=== PATIENT | female | born 1975 | race Hispanic/Latino ===

== ENCOUNTER 2021-11-02 11:41 | Emergency (ER) | payer BC, SELFPAY ==
--- NOTE | 2021-11-02 11:48 | ED.SKABFB ---
HPI - Skin/Abscess/Foreign Bdy General Chief complaint: Skin/Abscess/Foreign Body Stated complaint: body rash Time Seen by Provider: 11/02/21 12:40 Source: patient and RN notes reviewed Mode of arrival: ambulatory Limitations: no limitations History of Present Illness HPI narrative: 46-year-old female presents with concern for reports swollen lips, rash. She reports she started having symptoms yesterday after flying on an airplane. Reports her lips were swollen and her upper eyelids were swollen. Reports generalized itching. She denies trouble swallowing, swollen tongue, trouble breathing, diarrhea, vomiting, fever. She denies any similar reaction to anything in the past. She denies any new body care products, with household products. Reports she started taking bupropion 2 weeks ago, otherwise has not taken any new medications. MD complaint: rash Related Data Home Medications Medication Instructions Recorded Confirmed bupropion HCl 150 mg 24 hr tablet, mg PO 11/02/21 extended release Allergies Allergy/AdvReac Type Severity Reaction Status Date / Time meperidine [From Demerol] Allergy Seizure Verified 11/02/21 12:14 Review of Systems Review of Systems: CONSTITUTIONAL: Denies malaise, chills, sweats, or fever. EYES: Denies redness, or discharge. Reports swollen upper eyelids ENT: Denies rhinorrhea, congestion, swollen tongue. Reports swollen lips CARDIOVASCULAR: Denies chest pain, palpitations, or edema. RESPIRATORY: Denies cough or dyspnea. GASTROINTESTINAL: Denies abdominal pain, nausea, vomiting SKIN: Reports generalized itchiness MUSCULOSKELETAL: Denies joint pain or myalgia. NEUROLOGIC: Denies headache. All systems reviewed & are unremarkable except as noted in HPI and below PMFSH Comments At time of signature, agree with nursing past medical, surgical, social and family history. There is no relevant family history pertinent to the presenting complaint Exam Narrative: GENERAL: Well-appearing, well-nourished, and in no acute distress. HEAD: Normocephalic, atraumatic. EYES: PERRLA, conjunctivae clear, and EOMI. mild soft edema to bilateral upper eyelids, no periorbital cellulitis noted ENT: Mucous membranes moist. Oropharynx without edema, erythema or lesions. Swollen lips noted, no swollen tongue NECK: Supple. No lymphadenopathy CHEST: Clear to auscultation. No respiratory distress. HEART: Regular rate and rhythm. SKIN: Warm, dry. Small amount of scattered erythematous papules NEURO: Alert and oriented x3. PSYCH: Normal mood and affect Course Course Emergency Course: Patient is aware of diagnosis, understands and agrees to treatment plan. Anticipatory guidance given. Patient agrees to follow-up as directed and is aware of reasons to seek care at the emergency department. Portions of this record may have been created with voice recognition software Level of Care: Express Care Visit Consultations Consultation #1: Patient reports a slight improvement in her symptoms Date: 11/02/21 Time: 13:29 Vital Signs Vital signs: Vital Signs Temperature 98.2 F 11/02/21 12:15 Pulse Rate 75 11/02/21 12:15 Respiratory Rate 14 11/02/21 12:15 Blood Pressure 123/85 11/02/21 12:15 Pulse Oximetry 100 11/02/21 12:15 Oxygen Delivery Room Air 11/02/21 12:15 Temperature 98.2 F 11/02/21 12:16 Pulse Rate 75 11/02/21 12:16 Respiratory Rate 14 11/02/21 12:16 Blood Pressure 123/85 11/02/21 12:16 Pulse Oximetry 100 11/02/21 12:16 Oxygen Delivery Room Air 11/02/21 12:16 Reviewed. MDM - Skin/Abscess/Foreign Bdy MDM Narrative Medical decision making narrative: No soft palate or uvula edema, no tongue or lip edema or other mucosal involvement, no respiratory compromise, no stridor, no wheezing, no wheezing, no history of syncope, no hypotension, no nausea, vomiting, or diarrhea. Differential Diagnosis Differential diagnosis: Likely urticaria, allergic reaction to drug an
[2021-11-02 12:15] VITALS: BP 123/85; PULSE 75; RESP 14; TEMP 36.8; O2SAT 100
[2021-11-02 12:16] VITALS: BP 123/85; PULSE 75; RESP 14; TEMP 36.8; O2SAT 100
[2021-11-02] MEDS: methylPREDNISolone SOD SUCC 125 MG VIAL IM (12:56)
== END 2021-11-02 13:23 | disposition home or self-care (01) ==
PROVIDERS: Emergency Provider Nurse Practitioner
DX: L50.9 Urticaria, unspecified (principal); F41.9 Anxiety disorder, unspecified; F32.A Depression, unspecified; G47.30 Sleep apnea, unspecified
CPT/HCPCS: 96372; 99213; G0463; J2930

== ENCOUNTER 2021-11-03 02:44 | Emergency (ER) | payer BC, SELFPAY ==
[2021-11-03 02:46] VITALS: BP 129/79; PULSE 129; RESP 18; TEMP 36.4; O2SAT 98
[2021-11-03] MEDS: FAMOTIDINE 20 MG/2 ML VIAL IV PUSH (03:16)
[2021-11-03] MEDS: methylPREDNISolone SOD SUCC 125 MG VIAL IV PUSH (03:17)
[2021-11-03] MEDS: diphenhydrAMINE HCl INJ 50 MG/ML VIAL 25 MG IV PUSH (03:19)
[2021-11-03 03:22] VITALS: BP 117/65; PULSE 110; RESP 20; O2SAT 98
[2021-11-03 04:01] VITALS: BP 102/61; PULSE 99; RESP 17; O2SAT 99
[2021-11-03 04:37] VITALS: BP 102/60; PULSE 100; RESP 21; O2SAT 95
--- NOTE | 2021-11-03 04:43 | ED.ALLEREA ---
HPI - Allergic Reaction General Chief complaint: Skin/Abscess/Foreign Body Stated complaint: rash Time Seen by Provider: 11/03/21 02:58 History of Present Illness HPI narrative: 46-year-old female presents emergency room secondary to a diffuse urticarial rash. She states she had her first episode yesterday went to an urgent care. They treated her and she got better. Last night she took Wellbutrin again and had another reaction which is even worse. She just began the Wellbutrin a couple weeks ago secondary to some mood issues she been dealing with. Denies any shortness of breath. Had never had anything like this before. She was given medication at the urgent care yesterday when is happened to take it much better. She did get a prescription for prednisone and is supposed to start taking that today. Related Data Allergies Allergy/AdvReac Type Severity Reaction Status Date / Time bupropion [From Wellbutrin] Allergy Hives Verified 11/03/21 03:16 meperidine [From Demerol] Allergy Unresponsiv Verified 11/03/21 03:15 e Review of Systems Review of Systems: CONSTITUTIONAL: Denies fever, chills, or sweats. EYES: Denies visual changes, redness, or discharge. ENT: Denies rhinorrhea, congestion, sore throat, or otalgia. Redness to the face but no swelling to the tongue CARDIOVASCULAR: Denies chest pain, palpitations, or edema. RESPIRATORY: Denies cough or dyspnea. GASTROINTESTINAL: Denies abdominal pain, nausea, vomiting, or diarrhea. GENITOURINARY: Denies dysuria or hematuria. SKIN: Diffuse urticarial rash MUSCULOSKELETAL: Denies back pain, joint pain, or myalgia. NEUROLOGIC: Denies headache, numbness, or weakness. PSYCHIATRIC: Denies anxiety or depression. FORMERLY [facility], [facility]–1983 Past Medical History Medical History (Updated 11/03/21 @ 04:45 by Michael Donaldson DO) Depression Social History Social History (Updated 11/03/21 @ 04:45 by Michael Donaldson DO) Smoking status: Never smoker Living arrangements: with family Exam Narrative: APPEARANCE: Well appearing, no pain or distress, well-nourished. Head Normocephalic and atraumatic. EYES: PERRLA/EOMI, conjunctivae clear. NOSE: Normal with no drainage EARS:TMS clear with Fink, with good light reflex. THROAT: Pharynx clear, no exudate. NECK: Supple. No adenopathy, no masses. RESPIRATORY: Airway patent, respirations nonlabored. Clear to auscultation bilaterally, no rales, rhonchi, wheezing. CARDIOVASCULAR: Regular rate and rhythm without murmurs, rubs, or gallops. ABDOMINAL: Soft, nontender, nondistended, no hepatosplenomegaly Musculoskeletal: Moves all extremities. Strength/ROM intact, No edema, No calf tenderness. NEURO: Alert. Cranial nerves II through XII intact. Normal gait. Good coordination. Nonfocal examination. SKIN:: Diffuse urticarial rash PSYCHIATRIC: Normal affect/mood, normal interaction Course Vital Signs Vital signs: Vital Signs Temperature 97.5 F L 11/03/21 02:46 Pulse Rate 129 H 11/03/21 02:46 Respiratory Rate 18 11/03/21 02:46 Blood Pressure 129/79 11/03/21 02:46 Pulse Oximetry 98 11/03/21 02:46 Temperature 97.5 F L 11/03/21 02:46 Pulse Rate 100 11/03/21 04:37 Respiratory Rate 21 H 11/03/21 04:37 Blood Pressure 102/60 11/03/21 04:37 Pulse Oximetry 95 11/03/21 04:37 MDM - Allergic Reaction MDM Narrative Medical decision making narrative: Patient treated with Benadryl, Pepcid, and Solu-Medrol. Reevaluated approximately hour later and doing much better and essentially the rash is completely gone at this time. Advised the patient not to take the Wellbutrin. Also advised her to take the prednisone she was prescribed yesterday supplement that was Zyrtec 10 mg a day. Discharge Plan Discharge Clinical Impression: Urticaria, Allergic reaction to drug Patient Disposition: Home, Self-Care Condition: Improved Instructions: Urticaria (ED) Additional Instructions: Take the prednisone that you were prescribed yeste
== END 2021-11-03 04:53 | disposition home or self-care (01) ==
PROVIDERS: Emergency Provider Emergency Medicine
DX: L50.0 Allergic urticaria (principal); T43.295A Adverse effect of other antidepressants, initial encounter; F32.A Depression, unspecified
CPT/HCPCS: 96374; 96375; 99284; J1200; J2930

== ENCOUNTER 2021-11-04 00:06 | Emergency (ER) | payer BC, SELFPAY ==
[2021-11-04 00:14] VITALS: BP 132/78; PULSE 110; RESP 18; TEMP 36.5; O2SAT 100
--- NOTE | 2021-11-04 00:18 | ED.ALLEREA ---
HPI - Allergic Reaction General Chief complaint: Allergic Reaction <BRENDA Murray Last Filed: 11/04/21 01:38> Stated complaint: hives <BRENDA Murray Last Filed: 11/04/21 01:38> Time Seen by Provider: 11/04/21 00:10 <BRENDA Murray Last Filed: 11/04/21 01:38> Source: patient <BRENDA Murray Last Filed: 11/04/21 01:38> Mode of arrival: ambulatory <BRENDA Murray Last Filed: 11/04/21 01:38> Limitations: no limitations <BRENDA Murray Last Filed: 11/04/21 01:38> History of Present Illness HPI narrative: This is a 46-year-old female that presents to the emergency department for hives present tonight. Reports she is evaluated in the ER last night for similar occurrence. She started her prednisone today. She noted hives again tonight. She took some Benadryl around 10:30 PM. She also took a Zyrtec today. She presented for reevaluation as her hives were present again tonight. Reports it possibly being a reaction to Wellbutrin. No other known new medications, soaps, lotions, detergents. Denies dyspnea or dysphagia. <BRENDA Murray Last Filed: 11/04/21 01:38> Related Data Allergies/adverse reactions: Allergies Allergy/AdvReac Type Severity Reaction Status Date / Time bupropion [From Wellbutrin] Allergy Hives Verified 11/03/21 03:16 meperidine [From Demerol] Allergy Unresponsiv Verified 11/03/21 03:15 e <BRENDA Murray Last Filed: 11/04/21 01:38> Review of Systems Review of Systems: CONSTITUTIONAL: Denies fever RESPIRATORY: Denies dyspnea. SKIN: Reports rash and itching. <BRENDA Murray Last Filed: 11/04/21 01:38> All systems reviewed & are unremarkable except as noted in HPI and below <BRENDA Murray Last Filed: 11/04/21 01:38> [facility] Past Medical History Medical History: Medical History (Updated 11/04/21 @ 01:38 by Karlene Mdaera PA-C) Depression <Karlene Madera PA-C - Last Filed: 11/04/21 01:38> Social History Social History: Social History (Updated 11/03/21 @ 04:45 by Michael Donaldson DO) Smoking status: Never smoker <Karlene Madera PA-C - Last Filed: 11/04/21 01:38> Exam Narrative: GENERAL: Well-appearing, well-nourished, and in no acute distress. HEAD: Normocephalic, atraumatic. EYES: EOMI. ENT: Mucous membranes moist. Oropharynx without tonsillar hypertrophy exudate or other lesions. No swelling of the mouth or tongue CHEST: Clear to auscultation. No respiratory distress. No wheezes rales or rhonchi HEART: Regular rate and rhythm. No murmur heard. Normal peripheral pulses. EXTREMITIES: Normal range of motion. No edema. SKIN: Warm, dry. Mild urticaria to the neck and chest NEURO: No focal deficits. Alert and oriented x3. PSYCH: Normal mood and affect <Karlene Madera PA-C - Last Filed: 11/04/21 01:38> Course VIDEO SURVEILLANCE TECHNICIAN/PA Physician Supervision For this encounter, I have reviewed the [facility] documentation, treatment plan and medical decision making: I was available for consultation as needed. [] <Michael Donaldson DO - Last Filed: 11/04/21 01:41> Vital Signs Vital signs: Vital Signs Temperature 97.7 F 11/04/21 00:14 Pulse Rate 110 H 11/04/21 00:14 Respiratory Rate 18 11/04/21 00:14 Blood Pressure 132/78 11/04/21 00:14 Pulse Oximetry 100 11/04/21 00:14 Temperature 97.7 F 11/04/21 00:35 Pulse Rate 110 H 11/04/21 00:35 Respiratory Rate 18 11/04/21 00:35 Blood Pressure 132/78 11/04/21 00:35 Pulse Oximetry 100 11/04/21 00:35 <Karlene Madera PA-C - Last Filed: 11/04/21 01:38> Vital Signs Temperature 97.7 F 11/04/21 00:14 Pulse Rate 110 H 11/04/21 00:14 Respiratory Rate 18 11/04/21 00:14 Blood Pressure 132/78 11/04/21 00:14 Pulse Oximetry 100 11/04/21 00:14 Temperature 97.7 F 11/04/21 00:35 Pulse Rate 110 H 11/04/21 00:35 Respiratory Rate 18 11/04/21 00:35 B
[2021-11-04 00:35] VITALS: BP 132/78; PULSE 110; RESP 18; TEMP 36.5; O2SAT 100
[2021-11-04] MEDS: FAMOTIDINE 20 MG/2 ML VIAL IV PUSH (00:48)
[2021-11-04] MEDS: methylPREDNISolone SOD SUCC 125 MG VIAL IV PUSH (00:48)
[2021-11-04 01:43] VITALS: BP 111/75; PULSE 86; RESP 20; O2SAT 98
== END 2021-11-04 01:54 | disposition home or self-care (01) ==
PROVIDERS: Emergency Provider Emergency Medicine
DX: L50.9 Urticaria, unspecified (principal); F32.A Depression, unspecified
CPT/HCPCS: 96374; 96375; 99284; J2930